=== PATIENT | female | born 1960 | race Caucasian/White ===

== ENCOUNTER → 2017-01-01 | Outpatient (REF) ==
[~2017-01-01] MED LIST: ABILIFY5 MG PO; AMARYL 2MG T2 MG/TAB PO; ASPI325T6 PO; ASPIRIN 81M81 MG/TA2 PO; CALCIUM 600 PLU1 TAB PO; CELEBREX 200MG200 MG PO; CYMBALTA 60MG60 MG PO; Cymbalta PO; DESYREL 100MG100 MG PO; DIABETIC MED PO; DOXYCYCLINE 10100 MG PO; GELATIN650 M2 PO; GLUCOPHAGE850 MG/TAB PO; HCTZ 25MG TAB25 MG PO; LASIX 20MG TABL20 MG PO; LASIX 40MG TABL40 MG PO; LOFIBRA200 MG PO; LOFIBRA54 MG PO; LOVENOX 4040 MG/0.4 SQ; MELAT3MGTAB PO; MELATONIN5 M1 SL; MICROZIDE12.5 MG PO; MOBIC 7.5MG7.5 MG PO; MYRBETR25MG PO; NEURONTIN300 MG/CAP PO; NORCO 325 MG-51 TAB PO; NORCO 325 MG-7.1 TAB PO; OSCAL 500 TAB500 MG PO; OXYCONTIN 20MG20 MG PO; PERCOCET 325 MG1 TA2 PO; PRILOSEC 20MG20 MG PO; ROXICODONE 55 MG/TAB PO; TENORMIN 2525 MG/TAB PO; THERAGRAN TAB1 UDTAB PO; ULTRAM 50MG TAB50 MG PO; VITAMIN D 50,1.25 MG PO; XANAX 0.5MG0.5 MG PO; XARELTO20 MG PO; ZANAFLEX 4MG TAB4 MG PO; ZANTAC 150MG T150 MG PO; ZANTAC 300300 MG PO; ZESTRIL 10MG10 MG PO; ZOFRAN 4MG T4 MG/TAB PO
== END ==
LOC: ZLAB.WCH 14:59
DX: Z01.89 Encounter for other specified special examinations (principal)

== ENCOUNTER → 2017-01-29 | Outpatient (CLI) | payer MEDICARE, OTHER | LOC: MC.RAD 11:00 | DX: Z12.31 Encounter for screening mammogram for malignant neoplasm of breast (principal) ==

== ENCOUNTER → 2017-03-31 | Outpatient (REF) | LOC: ZLAB.WCH 11:22 | DX: Z01.89 Encounter for other specified special examinations (principal) ==

== ENCOUNTER → 2021-12-21 | Outpatient (CLI) | payer MEDICARE ==
[~2021-12-21] VITALS: Ht 172.7 cm; Wt 131.8 kg
[~2021-12-21] MED LIST changes: +ASPIRIN E.C. 8181 MG PO; +DETROL 2MG TAB2 MG PO; +GLUCOPHAGE1000 MG PO; +LANTUS SOLOS100 U/ML SQ; +LIPITOR 10MG10 MG PO; +PRINIVIL5 MG PO
[2021-12-21 17:12] VITALS: BP 110/69; PULSE 70; TEMP 97.6
== END ==
LOC: EUO 16:00
DX: M81.0 Age-related osteoporosis without current pathological fracture (principal)
CPT/HCPCS: J3489